=== PATIENT | male | born 1985 | race Two or more races ===

== ENCOUNTER 2017-01-25 16:40 | Emergency (ER) | payer MEDICAID ==
[~2017-01-25] VITALS: Ht 188 cm; Wt 117.9 kg
[2017-01-25 17:29] VITALS: BP 146/82
== END 2017-01-26 00:32 | disposition left against medical advice (07) ==
LOC: ER 16:40 → EDUNIT# 16:40 → ER 01-26 00:32
DX: R04.0 Epistaxis (principal); Z53.21 Procedure and treatment not carried out due to patient leaving prior to being seen by health care provider

== ENCOUNTER 2021-05-16 21:09 | Emergency (ER) | payer SELFPAY | END 2021-05-16 21:30 | disposition left against medical advice (07) | LOC: ER 21:09 → EDBD 21:09 → ER 21:11 | DX: R07.9 Chest pain, unspecified (principal); Z53.21 Procedure and treatment not carried out due to patient leaving prior to being seen by health care provider | CPT/HCPCS: 93005 ==